=== PATIENT | male | born 1975 | race Caucasian/White ===

== ENCOUNTER → 2024-04-25 12:26 | Outpatient (REF) | payer OTHER, SELFPAY | LOC: UCDH 12:26 | PROVIDERS: ATTENDING PHYSICIAN Emergency Medicine; FAMILY PHYSICIAN Physician Assistant Medical | DX: J98.9 Respiratory disorder, unspecified (principal) | CPT/HCPCS: 71046 ==

== ENCOUNTER → 2025-05-21 07:11 | Outpatient (REF) | payer OTHER, SELFPAY | LOC: RAD 07:11 | PROVIDERS: ATTENDING PHYSICIAN Physician Assistant Medical | DX: R94.39 Abnormal result of other cardiovascular function study (principal); E78.2 Mixed hyperlipidemia; Z82.49 Family history of ischemic heart disease and other diseases of the circulatory system | CPT/HCPCS: 75571; 93005; 93017 ==